=== PATIENT | female | born 1950 | race Two or more races ===

== ENCOUNTER 2024-07-16 21:54 | Inpatient (IN) | payer MEDICAID, OTHER ==
[~2024-07-16] VITALS: Ht 154.9 cm; Wt 69.1 kg
[2024-07-16 22:31] LABS: Basophils # (auto) 0.1 10 ^3/uL (0-0.2); Basophils % (auto) 0.8 % (0.0-2.0); Eosinophils # (auto) 0.2 10 ^3/uL (0-0.8); Eosinophils % (auto) 2.2 % (0.0-7.0); Hematocrit 42.8 % (36.0-46.0); Hemoglobin 14.5 g/dL (12.2-16.2); Lymphocytes # (auto) 2.3 10 ^3/uL (0.4-5.4); Lymphocytes % (auto) 29.8 % (10.0-50.0); Mean Corpuscular Hemoglobin 30.2 pg (28.0-32.0); Mean Corpuscular Hgb Conc. 33.8 g/dL (32.0-36.0); Mean Corpuscular Volume 89.4 fL (80.0-100.0); Monocytes # (auto) 0.5 10 ^3/uL (0-1.3); Monocytes % (auto) 7.2 % (0.0-12.0); Neutrophils # (auto) 4.6 10 ^3/uL (1.6-8.6); Nucleated Red Blood Cells % 0.1 %; Platelet Count (auto) 210 10^3/uL (140-450); Red Blood Cells 4.79 10^6/uL (4.0-5.20); Red Cell Distribution Width 13.2 % (11.8-14.3); White Blood Cell 7.6 10^3/uL (4.4-10.8)
[2024-07-16 22:47] LABS: Albumin 4.1 g/dL (3.2-4.8); Alkaline Phosphatase 80 U/L (46-116); Anion Gap 6 (5-15); Aspartate Aminotransferase 13 U/L (13-40); BUN/Creatinine Ratio 12.5 (10.0-20.0); Blood Urea Nitrogen 12 mg/dL (9-23); Calcium 9.9 mg/dL (8.7-10.4); Carbon Dioxide 24 mmol/L (20-31); Chloride 112 mmol/L (98-107); Glucose 116 mg/dL (74-106); Lipase 48 U/L (12-53); Potassium 3.8 mmol/L (3.5-5.1); Sodium 142 mmol/L (136-145)
[2024-07-16 22:48] LABS: Bilirubin, Total 1.2 mg/dL (0.2-1.0); Total Protein 6.3 g/dL (5.7-8.2)
[2024-07-16 22:53] VITALS: PULSE 54; RESP 16; O2SAT 96
[2024-07-16 23:08] LABS: Alanine Aminotransferase < 9 U/L (7-40)
[2024-07-17] VITALS (16 sets, daily range): BP systolic 110–130; BP diastolic 52–67; PULSE 16–60; RESP 12–19; TEMP 97.5–98.6; O2SAT 92–99
[2024-07-17] MEDS ORDERED: DOCUSATE SOD 100 MG CAP PO PRN (00:15)
[2024-07-17] MEDS ORDERED: ONDANSETRON HCL 4 MG/2 ML VIAL IV PRN (00:15)
[2024-07-17] MEDS ORDERED: NITROGLYCERIN 0.4 MG SL TAB SL PRN (00:15)
[2024-07-17] MEDS ORDERED: MORPHINE SULFATE INJ 2 MG/ml SYRG IV PRN (00:15)
[2024-07-17] MEDS ORDERED: ACETAMINOPHEN 325 MG TAB PO PRN (00:15)
[2024-07-17] MEDS: SODIUM CHLOR 0.9% PF (SALINE LOCK) 10ML VIAL/SYR IV SCH (05:40)
[2024-07-17] MEDS: ASPirin 81 mg TAB PO SCH (09:32)
[2024-07-17] MEDS: HYDROcodone-ACET 5/325MG TAB PO PRN (09:33)
[2024-07-17 12:30] LABS: Triglycerides 94 mg/dL (< 150)
[2024-07-17 12:31] LABS: LDL Cholesterol 80 mg/dL (< 100)
[2024-07-17 12:32] LABS: Cholesterol 147 mg/dL (< 200); HDL Cholesterol 49 mg/dL (40-59)
[2024-07-17 12:33] LABS: Alanine Aminotransferase 11 U/L (7-40); Alkaline Phosphatase 68 U/L (46-116); Anion Gap 5 (5-15); Aspartate Aminotransferase 12 U/L (13-40); BUN/Creatinine Ratio 11.6 (10.0-20.0); Blood Urea Nitrogen 10 mg/dL (9-23); CRP High Sensitivity 0.03 mg/dL (<1.0); Calcium 9.7 mg/dL (8.7-10.4); Carbon Dioxide 27 mmol/L (20-31); Chloride 111 mmol/L (98-107); Glucose 91 mg/dL (74-106); Potassium 3.9 mmol/L (3.5-5.1); Sodium 143 mmol/L (136-145)
[2024-07-17 12:34] LABS: Bilirubin, Total 1.8 mg/dL (0.2-1.0); Total Protein 6.3 g/dL (5.7-8.2)
[2024-07-17] MEDS ORDERED: ATOR20TA PO (12:36)
[2024-07-17] MEDS ORDERED: ACYC200C22 PO (12:36)
[2024-07-17] MEDS ORDERED: ASPI1TAB20 PO (12:36)
[2024-07-17] MEDS ORDERED: METO25TA5 PO (12:36)
[2024-07-17] MEDS ORDERED: CITA-77 PO (12:36)
[2024-07-17 13:01] LABS: Erythrocyte Sedimentation Rate 2 mm/hr (0-20)
[2024-07-17 14:49] LABS: INR 1.06 (0.9-1.15); Prothrombin Time 11.2 sec (9.3-11.8)
[2024-07-17] MEDS: IODIXANOL 320MG/ML 100ML BTL IV ONE (15:47)
[2024-07-17] MEDS: HEPARIN IN NS 1000Units/500mL 1,500 ML ONE (15:47)
[2024-07-17] MEDS: HEPARIN SODIUM (PORCINE) 5000 UNITS/ML 1ML VIAL ONE (16:23)
[2024-07-17] MEDS: VERAPAMIL 2.5MG/ML INJ 2ML VIAL IV ONE (16:23)
[2024-07-17] MEDS: ANGIOMAX 250 MG VIAL IV ONE (16:23)
[2024-07-17] MEDS: LIDOCAINE 2%HCL (LOCAL ANESTH.) INJ 20ML MDV ONE (16:24)
[2024-07-17] MEDS: fentaNYL CITRATE 100 MCG/2 ML VL ONE (16:24)
[2024-07-17] MEDS: MIDAZOLAM HCL 2MG/2ML 2ml VIAL (1mg/ml) ONE (16:24)
[2024-07-17] MEDS: SODIUM CHL 0.9% 0 ML ONE (16:24)
[2024-07-17 19:46] LABS: Urine Bacteria None Seen /hpf (None Seen)
[2024-07-17 20:03] LABS: Urine Blood TRACE /uL (Negative); Urine Clarity Clear (Clear); Urine Color Light-Yellow (Yellow); Urine Hyaline Cast FEW /lpf (0 - 2); Urine Protein, UAD Negative (Negative); Urine Specific Gravity 1.015 (1.001-1.035); Urine Urobilinogen Normal (Negative); Urine WBC 1 /hpf (0 - 5); Urine pH 6.5 (5.0-9.0)
[2024-07-17 20:10] LABS: Amphetamine Screen, Urine Neg (NEGATIVE); Barbiturate Scree,Urine Neg (NEGATIVE); Benzodiazephine Screen, Urine Neg (NEGATIVE); Cannabinoid Screen, Urine Neg (NEGATIVE); Cocaine Screen, Urine Neg (NEGATIVE); Opiate Scree,Urine Neg (NEGATIVE); Phencyclidine Screen, Urine Neg (NEGATIVE)
[2024-07-17 21:30] LABS: Basophils # (auto) 0.1 10 ^3/uL (0-0.2); Eosinophils # (auto) 0.1 10 ^3/uL (0-0.8); Eosinophils % (auto) 1.9 % (0.0-7.0); Hematocrit 43.4 % (36.0-46.0); Lymphocytes # (auto) 2.2 10 ^3/uL (0.4-5.4); Lymphocytes % (auto) 31.7 % (10.0-50.0); Mean Corpuscular Hemoglobin 30.7 pg (28.0-32.0); Mean Corpuscular Hgb Conc. 34.6 g/dL (32.0-36.0); Mean Corpuscular Volume 88.7 fL (80.0-100.0); Monocytes # (auto) 0.6 10 ^3/uL (0-1.3); Neutrophils # (auto) 3.9 10 ^3/uL (1.6-8.6); Neutrophils % (auto) 56.4 % (37.0-80.0); Nucleated Red Blood Cells % 0.1 %; Platelet Count (auto) 191 10^3/uL (140-450); Red Blood Cells 4.89 10^6/uL (4.0-5.20); Red Cell Distribution Width 13.5 % (11.8-14.3); White Blood Cell 6.9 10^3/uL (4.4-10.8)
[2024-07-17] MEDS: ATORVASTATIN 20 MG TAB PO SCH (21:54)
[2024-07-18 01:00] VITALS: BP 110/53; PULSE 66; RESP 17; TEMP 97.8; O2SAT 94
[2024-07-18 04:58] VITALS: BP 119/70; PULSE 59; RESP 18; TEMP 98.1; O2SAT 97
[2024-07-18 06:41] LABS: Basophils # (auto) 0.1 10 ^3/uL (0-0.2); Basophils % (auto) 0.9 % (0.0-2.0); Eosinophils # (auto) 0.2 10 ^3/uL (0-0.8); Hematocrit 46.2 % (36.0-46.0); Hemoglobin 15.9 g/dL (12.2-16.2); Lymphocytes # (auto) 2.1 10 ^3/uL (0.4-5.4); Lymphocytes % (auto) 24.6 % (10.0-50.0); Mean Corpuscular Hemoglobin 30.5 pg (28.0-32.0); Mean Corpuscular Hgb Conc. 34.4 g/dL (32.0-36.0); Mean Corpuscular Volume 88.8 fL (80.0-100.0); Monocytes # (auto) 0.6 10 ^3/uL (0-1.3); Monocytes % (auto) 7.4 % (0.0-12.0); Neutrophils # (auto) 5.6 10 ^3/uL (1.6-8.6); Neutrophils % (auto) 65.1 % (37.0-80.0); Nucleated Red Blood Cells % 0.5 %; Platelet Count (auto) 195 10^3/uL (140-450); Red Cell Distribution Width 13.4 % (11.8-14.3); White Blood Cell 8.6 10^3/uL (4.4-10.8)
[2024-07-18 06:57] LABS: Alanine Aminotransferase 10 U/L (7-40); Alkaline Phosphatase 66 U/L (46-116); Anion Gap 8 (5-15); Aspartate Aminotransferase 11 U/L (13-40); BUN/Creatinine Ratio 12.1 (10.0-20.0); Blood Urea Nitrogen 12 mg/dL (9-23); Calcium 9.7 mg/dL (8.7-10.4); Carbon Dioxide 25 mmol/L (20-31); Chloride 108 mmol/L (98-107); Glucose 93 mg/dL (74-106); Potassium 4.2 mmol/L (3.5-5.1); Sodium 141 mmol/L (136-145)
[2024-07-18 06:58] LABS: Bilirubin, Total 2.2 mg/dL (0.2-1.0); Total Protein 6.3 g/dL (5.7-8.2)
[2024-07-18 08:00] VITALS: PULSE 58; PULSE 64; RESP 18; O2SAT 98
[2024-07-18 09:00] VITALS: BP 123/54; PULSE 60; RESP 17; TEMP 98; O2SAT 98
[2024-07-18] MEDS: CITALOPRAM HYDROBR 20 MG TAB PO SCH (10:00)
[2024-07-18] MEDS ORDERED: ISOS1TAB28 PO (12:31)
[2024-07-18 13:24] VITALS: BP 125/64; PULSE 61; RESP 17; TEMP 98.1; O2SAT 98
== END 2024-07-18 14:50 | disposition home or self-care (01) | DRG 192 ==
LOC: EDBD 21:54 → ER 21:54 → TELE 07-17 00:06 → TELE-EAST 07-17 03:04
PROVIDERS: ADMIT Internal Medicine Geriatric Medicine; ATTEND Internal Medicine Geriatric Medicine
PROC: 4A023N7 Measurement of Cardiac Sampling and Pressure, Left Heart, Percutaneous Approach (ICD-10-PCS; principal; 2024-07-17)
PROC: B211YZZ Fluoroscopy of Multiple Coronary Arteries using Other Contrast (ICD-10-PCS; 2024-07-17)
PROC: 4A033BC Measurement of Arterial Pressure, Coronary, Percutaneous Approach (ICD-10-PCS; 2024-07-17)
DX: T82.855A Stenosis of coronary artery stent, initial encounter (principal); E66.3 Overweight; F32.A Depression, unspecified; I10 Essential (primary) hypertension; F41.9 Anxiety disorder, unspecified; I25.10 Atherosclerotic heart disease of native coronary artery without angina pectoris; I34.0 Nonrheumatic mitral (valve) insufficiency; Z68.28 Body mass index [BMI] 28.0-28.9, adult; I25.2 Old myocardial infarction; Z79.899 Other long term (current) drug therapy; Y84.8 Other medical procedures as the cause of abnormal reaction of the patient, or of later complication, without mention of misadventure at the time of the procedure; Y92.89 Other specified places as the place of occurrence of the external cause
CPT/HCPCS: 36415; 71045; 80053; 80061; 80307; 81001; 82248; 82306; 82607; 83036; 83690; 83880; 84443; 84484; 85025; 85610; 85652; 86141; 93005; 93306; 93458; 93571; 99152; 99291; G0378; J2250; Q9967